=== PATIENT | female | born 1995 | race Caucasian/White ===

== ENCOUNTER 2017-03-28 12:52 | Emergency (ER) | payer MEDICAID ==
[2017-03-28 13:11] VITALS: BP 109/71
[2017-03-28] MEDS ORDERED: Ketorolac 60 MG/2 ML SDV IM ONE (13:59)
[2017-03-28] MEDS ORDERED: Acetaminophen/oxyCODONE 325-5 MG Tab PO ONE (13:59)
--- NOTE | 2017-03-28 14:02 | EDM.PDOC ---
ED HPI GENERAL MEDICAL PROBLEM - General Chief Complaint: Back Pain or Injury Stated Complaint: FALL, BACK PAIN Time Seen by Provider: 03/28/17 14:02 Source of Information: Reports: Patient, Family History Limitations: Reports: No Limitations - History of Present Illness INITIAL COMMENTS - FREE TEXT/NARRATIVE: pt fell and hit the top stairs / She has redness and swelling of the rt lumbar area. Onset: Today Duration: Hour(s): Location: Reports: Back Associated Symptoms: Reports: Other (pain in the lower back area. ) Lower Back Pain Score (Numeric/FACES): 5 - Related Data Allergies Allergy/AdvReac Type Severity Reaction Status Date / Time azithromycin Allergy Other Verified 03/28/17 13:40 brompheniramine Allergy Other Verified 03/28/17 13:40 erythromycin base Allergy Hives Verified 03/28/17 13:40 [Erythromycin Base] Penicillins Allergy Rash Verified 03/28/17 13:40 Home Meds: Home Meds Albuterol Sulfate [Proair Hfa] 2 puff IH Q4H PRN 01/22/16 [History] Triamcinolone Acetonide [Kenalog 0.1% Crm] 1 applic TOP TID 01/22/16 [History] Citalopram [Citalopram HBr] 20 mg PO DAILY 03/28/17 [History] Past Medical History - Past Health History Medical/Surgical History: Denies Medical/Surgical History Respiratory History: Reports: Asthma Other Respiratory History: some shortness of breath due to seasonal allergies Genitourinary History: Reports: UTI, Recurrent Other Genitourinary History: during [employer] History: Reports: Psychiatric History: Reports: Anxiety, Depression Dermatologic History: Reports: Psoriasis - Infectious Disease History Infectious Disease History: Reports: Chicken Pox - Past Surgical History HEENT Surgical History: Reports: Tonsillectomy Female Surgical History: Reports: Section Social & Family History - Family History Family Medical History: Noncontributory - Tobacco Use Smoking Status *Q: Never Smoker Second Hand Smoke Exposure: No - Caffeine Use Caffeine Use: Reports: Soda - Alcohol Use Days Per Week of Alcohol Use: 0 - Recreational Drug Use Recreational Drug Use: No ED ROS GENERAL - Review of Systems Review Of Systems: See Below Constitutional: Reports: No Symptoms HEENT: Reports: No Symptoms Respiratory: Reports: No Symptoms Cardiovascular: Reports: No Symptoms Endocrine: Reports: No Symptoms GI/Abdominal: Reports: No Symptoms : Reports: No Symptoms Musculoskeletal: Reports: Back Pain, Other (PT FELL AND HIT THE TOP STAIRS . ) Skin: Reports: No Symptoms ED EXAM, UPPER BACK/NECK PAIN - Physical Exam Exam: See Below Text/Narrative:: PT FELL AND HIT THE TOP STAIRS WITH THE RT POST LUMBAR AREA. Exam Limited By: No Limitations General Appearance: Alert, Moderate Distress Ears Exam: Normal TMs Nose Exam: Normal Inspection Back Exam: Other (PT HAS REDNESS ANSD SWELLING ON THE RT LUMBAR AREA. tHIS AREA IS VERY TENDER. ) Extremities: Normal Inspection Course - Vital Signs Last Recorded V/S: Last Vital Signs Temp 36.1 C 03/28/17 13:42 Pulse 82 03/28/17 13:42 Resp 14 03/28/17 13:42 BP 109/71 03/28/17 13:42 Pulse Ox 98 03/28/17 13:42 - Orders/Labs/Meds Meds: Medications Discontinued Medications Generic Name Dose Route Start Last Admin Trade Name Ilana PRN Reason Stop Dose Admin Ketorolac Tromethamine 60 mg 03/28/17 13:59 03/28/17 14:06 Toradol IM 03/28/17 14:00 60 mg ONETIME ONE Administration Oxycodone/Acetaminophen 1 tab 03/28/17 13:59 03/28/17 14:05 Percocet 325-5 Mg PO 03/28/17 14:00 1 tab ONETIME ONE Administration - Re-Assessments/Exams Free Text/Narrative Re-Assessment/Exam: 03/28/17 14:51 PT WAS GIVEN TORODOL 60MG IM AND PERCOCET 5/325 Q6H PRN FOR PAIN. Departure - Departure Time of Disposition: 14:52 Disposition: Home, Self-Care 01 Condition: fair Clinical Impression: Contusion of back - Discharge Information Forms: ED Department Discharge Care Plan Goals: ICE PACK TO AREA, SEND ICE PACK WITH THE PT NO WORK FOR 2 DAYS. FLEXERIL 10MG HS , MOTRIN 600MG TID, NORCO 5/325 Q6H PRN FOR PAIN.
--- NOTE | 2017-03-28 14:31 | CR ---
Lumbar Spine Min 4V HISTORY: pain in lower back FINDINGS: Lumbar vertebral bodies appear intact and in satisfactory alignment. No compression fracture or dis k space narrowing is seen. Spinous processes, posterior elements, and pedicles appear intact and in satisfactory alignment. Perivertebral soft tissues appear normal. Bowel gas pattern is nonspecific. IUD is noted overlying the lower mid pelvis. IMPRESSION: No acute lumbar spine abnormality identified. No significant degenerative or hypertrophic changes ar e seen. IUD overlies the lower mid pelvis.
== END 2017-03-28 15:34 | disposition home or self-care (01) ==
LOC: JP.ED 12:52
DX: S30.0XXA Contusion of lower back and pelvis, initial encounter (principal); J45.909 Unspecified asthma, uncomplicated; F41.9 Anxiety disorder, unspecified; F32.9 Major depressive disorder, single episode, unspecified; Z88.1 Allergy status to other antibiotic agents; Z88.0 Allergy status to penicillin; Z79.899 Other long term (current) drug therapy; Z98.890 Other specified postprocedural states; W01.198A Fall on same level from slipping, tripping and stumbling with subsequent striking against other object, initial encounter
CPT/HCPCS: 72110; 96372; 99284; A9270; J1885

== ENCOUNTER 2020-03-21 10:16 | Emergency (ER) | payer MEDICAID ==
[2020-03-21 10:54] VITALS: BP 156/100; PULSE 71
--- NOTE | 2020-03-21 11:04 | EDM.PDOC ---
ED HPI GENERAL MEDICAL PROBLEM - General Chief Complaint: Lower Extremity Injury/Pain Stated Complaint: L FOOT INJURY Time Seen by Provider: 03/21/20 10:48 Source of Information: Reports: Patient, RN Notes Reviewed History Limitations: Reports: No Limitations - History of Present Illness INITIAL COMMENTS - FREE TEXT/NARRATIVE: 24-year-old female presents emergency department today complaint of left ankle pain she injured herself on Monday with a fall and twist injury was evaluated in clinic x-rays performed yesterday revealed no acute process she is continued to ambulate on this has increased pain and swelling. - Related Data Allergies Allergy/AdvReac Type Severity Reaction Status Date / Time azithromycin Allergy Other Verified 03/28/17 13:40 brompheniramine Allergy Other Verified 03/28/17 13:40 erythromycin base Allergy Hives Verified 03/28/17 13:40 [Erythromycin Base] Penicillins Allergy Rash Verified 03/28/17 13:40 Home Meds: Home Meds Albuterol Sulfate [Proair Hfa] 2 puff IH Q4H PRN 01/22/16 [History] Sertraline [Zoloft] 50 mg PO DAILY 03/21/20 [History] Past Medical History Respiratory History: Reports: Asthma Other Respiratory History: some shortness of breath due to seasonal allergies Genitourinary History: Reports: UTI, Recurrent Other Genitourinary History: during [employer] History: Reports: Psychiatric History: Reports: Anxiety, Depression Dermatologic History: Reports: Psoriasis - Infectious Disease History Infectious Disease History: Reports: Chicken Pox - Past Surgical History HEENT Surgical History: Reports: Tonsillectomy Female Surgical History: Reports: Section Social & Family History - Family History Family Medical History: Noncontributory - Tobacco Use Smoking Status *Q: Never Smoker - Caffeine Use Caffeine Use: Reports: Soda - Recreational Drug Use Recreational Drug Use: No Review of Systems - Review of Systems Review Of Systems: See Below Musculoskeletal: Reports: Joint Pain ED EXAM, GENERAL - Physical Exam Exam: See Below (Left ankle) Free Text/Narrative:: Examination left ankle I do appreciate some edema there is no ecchymosis pedal pulses +2 she does not tolerate any drawer motion and will not tolerate a tilt test. Course - Vital Signs Last Recorded V/S: Last Vital Signs Temp 96 F L 03/21/20 10:38 Pulse 71 03/21/20 10:38 Resp 16 03/21/20 10:38 BP 156/100 H 03/21/20 10:38 Pulse Ox 98 03/21/20 10:38 - Orders/Labs/Meds Orders: Active Orders 24 hr Category Date Time Status DME for Discharge [COMM] Stat Oth 03/21/20 11:00 Ordered Departure - Departure Time of Disposition: 11:02 Disposition: Home, Self-Care 01 Condition: Fair Clinical Impression: Left ankle sprain Qualifiers: Encounter type: initial encounter Involved ligament of ankle: unspecified ligament Qualified Code(s): S93.402A - Sprain of unspecified ligament of left ankle, initial encounter - Discharge Information Instructions: Ankle Sprain, [id number] Referrals: Lisseth Delgado PA-C [Primary Care Provider] - Additional Instructions: Use Tylenol and Motrin as needed for pain control, continue to use the boot for comfort and crutches as needed follow-up primary care 3 to 5 days for reevaluation. Sepsis Event Note - Evaluation Sepsis Screening Result: No Definite Risk - Focused Exam Vital Signs: Vital Signs Temp Pulse Resp BP Pulse Ox 03/21/20 10:38 96 F L 71 16 156/100 H 98 03/21/20 10:35 96 F L 71 16 156/100 H 98 Date Exam was Performed: 03/21/20 Time Exam was Performed: 11:00 - My Orders Last 24 Hours: My Active Orders 03/21/20 11:00 DME for Discharge [COMM] Stat - Assessment/Plan Last 24 Hours: My Active Orders 03/21/20 11:00 DME for Discharge [COMM] Stat Plan: Assessment Left ankle sprain Plan She is placed in a walking boot and crutches Tylenol Motrin as needed for pain control, follow-up primary care 3 to 5 days for reevaluation
== END 2020-03-21 11:19 | disposition home or self-care (01) ==
LOC: JP.ED 10:16
DX: S93.402A Sprain of unspecified ligament of left ankle, initial encounter (principal); J45.909 Unspecified asthma, uncomplicated; F41.9 Anxiety disorder, unspecified; F32.9 Major depressive disorder, single episode, unspecified; Z88.0 Allergy status to penicillin; Z88.8 Allergy status to other drugs, medicaments and biological substances; Z79.899 Other long term (current) drug therapy; X37.1XXA Tornado, initial encounter
CPT/HCPCS: 99283

== ENCOUNTER 2022-11-07 20:42 | Emergency (ER) | payer MEDICAID ==
[2022-11-07 21:32] LABS: ESTIMATED GFR 103 mL/min (>60)
[2022-11-07] MEDS ORDERED: Cephalexin 250 MG Cap PO ONE (21:33)
[2022-11-07 22:28] VITALS: BP 140/70; PULSE 84
[2022-11-07] MEDS ORDERED: cefTRIAXone 1 GM Vial IM ONE (23:19)
[2022-11-07] MEDS ORDERED: Lidocaine 1% 5 ML VIAL INJECT ONE (23:20)
[2022-11-12 15:09] LABS: CHLAMYDIA TRACHOMATIS, NAA Negative (Negative); NEISSERIA GONORRHOEAE, NAA Negative (Negative)
== END 2022-11-07 23:35 | disposition home or self-care (01) ==
LOC: JP.ED 20:42
DX: T83.89XA Other specified complication of genitourinary prosthetic devices, implants and grafts, initial encounter (principal); N73.9 Female pelvic inflammatory disease, unspecified; J45.909 Unspecified asthma, uncomplicated; Z88.1 Allergy status to other antibiotic agents; Z88.8 Allergy status to other drugs, medicaments and biological substances
CPT/HCPCS: 36415; 76830; 76857; 80053; 81001; 81025; 85025; 86140; 87086; 87210; 87491; 87591; 96372; 99284; A9270; J0696

== ENCOUNTER 2023-04-03 15:13 | Emergency (ER) | payer MEDICAID ==
[2023-04-03 15:28] LABS: APPEARANCE,URINE CLOUDY (CLEAR); BILIRUBIN,URINE NEGATIVE (NEGATIVE); COLOR,URINE YELLOW (YELLOW); GLUCOSE,URINE NEGATIVE (NEGATIVE); KETONES,URINE NEGATIVE (NEGATIVE); LEUKOCYTE ESTERASE,URINE SMALL (NEGATIVE); NITRITE,URINE NEGATIVE (NEGATIVE); OCCULT BLOOD,URINE NEGATIVE (NEGATIVE); PH,URINE 7.5 (5.0-8.0); PROTEIN,URINE TRACE mg/dL (NEGATIVE); UROBILINOGEN,URINE 0.2 EU/dL (0.2-1.0)
[2023-04-03 15:33] LABS: RBC,URINE 0-5 (0-5); WBC,URINE 30-40 (0-5)
[2023-04-03 15:34] LABS: AMORPHOUS SEDIMENT,URINE NOT SEEN; BACTERIA,URINE MANY; EPITHELIAL CELLS,URINE MANY; MUCUS,URINE MODERATE
[2023-04-03] MEDS ORDERED: Sodium Chloride 0.9% 10 ML Syringe FLUSH PRN (15:50)
[2023-04-03 16:13] LABS: BASOPHILS ABSOLUTE AUTO 0.07 K/uL (0.00-0.10); BASOPHILS PERCENT AUTO 0.4 % (0.1-1.3); EOSINOPHILS ABSOLUTE AUTO 0.04 K/uL (0.00-0.40); EOSINOPHILS PERCENT AUTO 0.2 % (0.0-5.4); HEMATOCRIT 37.5 % (34.3-46.0); HEMOGLOBIN 12.4 g/dL (11.2-15.5); IMMATURE GRAN ABSOLUTE AUTO 0.14 K/uL (0.00-0.23); IMMATURE GRAN PERCENT AUTO 0.8 % (0.0-0.7); LYMPHOCYTES ABSOLUTE AUTO 0.95 K/uL (0.8-3.3); LYMPHOCYTES PERCENT AUTO 5.2 % (11.4-47.7); MEAN CORPUSCULAR HEMOGLOBIN 30.2 pg (31.6-35.5); MEAN CORPUSCULAR HGB CONC 33.1 g/dL (31.6-35.5); MEAN CORPUSCULAR VOLUME 91.2 fL (81.4-99.0); MONOCYTES ABSOLUTE AUTO 0.82 K/uL (0.20-0.90); MONOCYTES PERCENT AUTO 4.5 % (3.3-12.6); NEUTROPHILS ABSOLUTE AUTO 16.17 K/uL (1.0-7.6); NEUTROPHILS PERCENT AUTO 88.9 % (40.0-78.1); PLATELET COUNT,PLT 371 K/uL (130-375); RED BLOOD CELL COUNT 4.11 M/uL (3.77-5.24); WHITE BLOOD CELL COUNT,WBC 18.2 K/uL (3.2-11.0)
[2023-04-03] MEDS ORDERED: Sodium Chloride 0.9% 500 ML IV ONE (16:22)
[2023-04-03 16:34] LABS: A/G RATIO 0.8 (1.2-2.2); ALANINE AMINOTRANSFERASE,ALT 30 U/L (12-78); ALBUMIN 3.5 g/dL (3.4-5.0); ALKALINE PHOSPHATASE 82 U/L (46-116); ASPARTATE AMNIOTRANSFERASE,AST 22 U/L (15-37); BILIRUBIN TOTAL 0.5 mg/dL (0.2-1.0); BLOOD UREA NITROGEN,BUN 12 mg/dL (7-18); C-REACTIVE PROTEIN 3.44 mg/dL (0.0-0.3); CALCIUM 8.8 mg/dL (8.5-10.1); CARBON DIOXIDE,CO2 27 mmol/L (21-32); CHLORIDE,CL 100 mmol/L (100-108); EST CRCL DRUG DOSING (CG) 80.72 mL/min; ESTIMATED GFR 78 mL/min (>60); GLUCOSE RANDOM 109 mg/dL (74-106); LIPASE 55 U/L (73-393); POTASSIUM,K 3.7 mmol/L (3.6-5.2); PROTEIN TOTAL,TP 7.7 g/dL (6.4-8.2); SODIUM,NA 136 mmol/L (140-148)
[2023-04-03 16:38] LABS: ANION GAP 12.7 mmol/L (5.0-14.0)
[2023-04-03] MEDS ORDERED: Sodium Chloride 0.9% 50 ML IV SCH (16:45)
[2023-04-03] MEDS ORDERED: Iopamidol 612 MG/ML 100 ML Bottle IV SCH (16:45)
[2023-04-03] MEDS ORDERED: Acetaminophen 325 MG Tab PO ONE (17:12)
[2023-04-03] MEDS ORDERED: cefTRIAXone 1 GM in Sodium Chloride 0.9% 50 ML IV ONE (18:46)
[2023-04-03] MEDS ORDERED: Sulfamethoxazole/Trimethoprim 800-160 MG Tab PO ONE (19:59)
[2023-04-04 02:01] VITALS: BP 124/81; PULSE 110
== END 2023-04-03 20:23 | disposition home or self-care (01) ==
LOC: JP.ED 15:13
DX: N12 Tubulo-interstitial nephritis, not specified as acute or chronic (principal); J45.909 Unspecified asthma, uncomplicated; Z20.822 Contact with and (suspected) exposure to COVID-19; Z86.16 Personal history of COVID-19; Z79.899 Other long term (current) drug therapy; Z88.0 Allergy status to penicillin; Z88.1 Allergy status to other antibiotic agents; Z88.8 Allergy status to other drugs, medicaments and biological substances
CPT/HCPCS: 36415; 74177; 80053; 81001; 81025; 83605; 83690; 85025; 86140; 87086; 87635; 96361; 96365; 99284; A9270; J0696; J3490; J7040; Q9967; U0002